=== PATIENT | female | born 1990 | race Caucasian/White ===

== ENCOUNTER 2016-05-12 14:16 | Emergency (ER) | payer OTHER ==
[~2016-05-12] VITALS: Ht 170.2 cm; Wt 57.0 kg
[~2016-05-12 14:16] MED LIST: ASCO10003 PO; B-COTAB18 PO; BIOT1CAP3 PO; CHOL100010 PO
[2016-05-12 14:18] VITALS: TEMP 36.8; Ht 170.2 cm; Wt 57.0 kg
--- NOTE | 2016-05-12 14:44 | EMERGENCY ROOM VISIT NOTE ---
History First contact with patient: 14:25 Chief Complaint: ARM PAIN Stated Complaint: PAIN IN LEFT ARM History of Present Illness The patient is a 25 year old female who presents to the Emergency Room with complaints of left arm pain. The patient reports an achy feeling in her arm. She states it has been intermittent over the last 1 week. She denies any falls or injuries. She denies any numbness or tingling. She denies any fevers, redness, warmth, swelling. She rates her discomfort a 5/10. She denies any chest pain, trouble breathing, fever. Review of Systems A 10 system review of systems was completed with positives and pertinent negatives listed in the HPI. Past Medical/Surgical History patient denies Social History Smoking Status: Never Smoker Housing Status: lives with family Current/Historical Medications Scheduled Ascorbic Acid (Vitamin C), 1,000 MG PO DAILY B-Complex Vitamins (Vitamin B Complex), 1 TAB PO DAILY Biotin (Biotin), 5,000 MCG PO DAILY Cholecalciferol (Vitamin D), 1,000 INTER.UNIT PO DAILY Allergies Uncoded Allergies: ALMONDS (Allergy, Unknown, Asthma Attack, 12/29/15) Raw Almonds only Physical Exam Vital Signs Date Time Temp Pulse Resp B/P Pulse Ox O2 Delivery O2 Flow Rate FiO2 05/12/16 15:47 88 16 122/53 100 Room Air 05/12/16 14:18 36.8 116 18 131/78 100 Room Air Physical Exam VITALS: Vitals are noted on the nurse's note and reviewed by myself. Vital signs stable. The patient is afebrile. GENERAL: This is a 25-year-old female, in no acute distress, nondiaphoretic, well-developed well-nourished. SKIN: The skin was without rashes, erythema, edema, or bruising. There is no tenting of the skin. Capillary reflex less than 2 seconds. HEAD: Normocephalic atraumatic. EARS: The external ears are normal in appearance. EYES: Pupils equal round and reactive to light and accommodation. Conjunctivae without injection, sclerae without icterus. Extraocular movements intact. NOSE: Patent, turbinates without inflammation or discharge. MOUTH: Mucous membranes moist. Tonsils are not enlarged. Pharynx without erythema or exudate. Uvula midline. Airway patent. Tongue does not deviate. NECK: Supple without nuchal rigidity. No JVD. HEART: Regular rate and rhythm without murmurs gallops or rubs. LUNGS: Clear to auscultation bilaterally without wheezes, rales or rhonchi. No retractions or accessory muscle use. MUSCULOSKELETAL: No muscle atrophy, erythema, or edema noted. Full range of motion without joint tenderness in all extremities. No tenderness to palpation. Normal gait. Strength 5/5 throughout. Negative Tinel's. Negative Phalen's. NEURO: Patient was alert and oriented to person place and time. Normal sensation to light and sharp touch. No focal neurological deficits. Medical Decision & Procedures ER Provider Diagnostic Interpretation: [~ rep ct add3]] LEFT UPPER EXTREMITY VENOUS DOPPLER CLINICAL HISTORY: Left arm pain. COMPARISON STUDY: No previous studies for comparison. FINDINGS: The left internal jugular, subclavian, axillary, brachial, basilic, radial and ulnar veins are patent. IMPRESSION: No deep venous thrombus within the left upper extremity. ED Course The patient was seen and examined. Previous visits were reviewed. The patient presents with left arm pain which is vague and nonspecific. She does not recall any specific injury. She has not had any numbness or tingling. She has not had any weakness. She has no neurologic deficit on exam. She has not had any chest pain or trouble breathing. An ultrasound was negative for DVT. The patient is concerned that this could be cardiac in nature. Again she has not had any chest pain, trouble breathing, pain radiating down her arm. I believe this is less likely to be cardiac. She has no significant cardiac risk factors. She is physically active and does not get chest pain, particular she does not get chest pain when working out at the gym. I did offer to perform an EKG but the patient declines. She should try ibuprofen. She should follow-up with her family doctor next week. The exact etiology is not clear at this time but may be musculoskeletal in nature. She should return with any fevers, weakness, numbness, chest pain, trouble breathing or generalized worsening symptoms Medical Decision The differential diagnosis includes DVT, superficial phlebitis, carpal tunnel, thoracic outlet syndrome, muscle strain, tendinitis, among others Impression Primary Impression: Arm pain, left Departure Information Dispostion Home / Self-Care Condition GOOD Referrals No Doctor, Assigned (PCP) Patient Instructions My [facility] Additional Instructions Motrin 600mg every 6-8 hours for 3-5 days Return with chest pain, trouble breathing, numbness, tingling or generalized worsening symptoms Otherwise, follow up with your family doctor next week
--- NOTE | 2016-05-12 15:16 | DIAGNOSTIC IMAGING REPORT ---
LEFT UPPER EXTREMITY VENOUS DOPPLER CLINICAL HISTORY: Left arm pain. COMPARISON STUDY: No previous studies for comparison. FINDINGS: The left internal jugular, subclavian, axillary, brachial, basilic, radial and ulnar veins are patent. IMPRESSION: No deep venous thrombus within the left upper extremity. Electronically signed by: Rory Lincoln M.D. 05/12/2016 3:15 PM Dictated Date/Time: 05/12/2016 3:14 PM
[2016-05-12 15:47] VITALS: BP 122/53; PULSE 88; O2SAT 100
== END 2016-05-12 15:47 | disposition home or self-care (01) ==
LOC: C.EDB 14:17 → C.EDD 15:47
DX: M79.602 Pain in left arm (principal); Z91.018 Allergy to other foods

== ENCOUNTER → 2016-11-21 | Outpatient (CLI) | payer OTHER ==
[2016-11-21 18:17] LABS: URINE APPEARANCE CLEAR (CLEAR); URINE BILIRUBIN NEG (NEG); URINE COLOR YELLOW; URINE NITRITE NEG (NEG); URINE PH 6.5 (4.5-7.5); UROBILINOGEN NEG (NEG)
[2016-11-21 18:20] LABS: MANUAL MICROSCOPIC REQUIRED? NO; REVIEW REQ? NO
== END | disposition home or self-care (01) ==
LOC: C.LABSPEC 17:52
PROVIDERS: ATTEND Physician Assistant
DX: R10.2 Pelvic and perineal pain (principal)

== ENCOUNTER → 2017-05-16 | Outpatient (CLI) | payer BC | END | disposition home or self-care (01) | LOC: C.LABSPEC 11:43 | PROVIDERS: ATTEND Physician Assistant | DX: Z01.419 Encounter for gynecological examination (general) (routine) without abnormal findings (principal) ==

== ENCOUNTER → 2017-05-16 | Outpatient (CLI) | payer BC | END | disposition home or self-care (01) | LOC: C.PAPS 11:23 | PROVIDERS: ATTEND Physician Assistant | DX: Z01.419 Encounter for gynecological examination (general) (routine) without abnormal findings (principal) ==